=== PATIENT | male | born 1945 | race Caucasian/White ===

== ENCOUNTER 2020-10-05 18:03 | Outpatient (CLI) | payer MEDICARE ==
[2020-10-05 18:57] LABS: PTT 23.6 sec (22.0-33.0); Prothrombin Time 10.3 sec (9.5-12.1)
--- NOTE | 2020-10-05 18:58 | RAD ---
XR Chest Pa Lat STANDARD History: Preop evaluation Comparison: Radiograph September 01, 2020 Findings: Lungs are clear. No pneumothorax or effusion. Cardiac silhouette and mediastinal contours a re within normal limits. No acute osseous abnormality. Impression: No acute intrathoracic abnormality.
[2020-10-05 18:59] LABS: ALT (SGPT) 16 U/L (8-55); AST (SGOT) 21 U/L (5-34); Albumin 3.8 g/dL (3.4-4.8); Alkaline Phosphatase 80 U/L (40-110); Anion Gap 12 mmol/L (10-20); BUN (Urea Nitrogen) 12 mg/dL (8.4-25.7); Bilirubin, Direct 0.1 mg/dL (0.1-0.3); Bilirubin, Total 0.2 mg/dL (0.2-1.2); Calc. Creatinine Clearance 0 mL/min (70-130); Calcium 8.5 mg/dL (7.8-10.44); Carbon Dioxide 26 mmol/L (23-31); Chloride 103 mmol/L (98-107); Estimated GFR-MDRD 83; Globulin 2.5 g/dL (2.4-3.5); Glucose 114 mg/dL (83-110); Potassium 4.5 mmol/L (3.5-5.1); Protein, Total 6.3 g/dL (5.8-8.1); Sodium 136 mmol/L (136-145)
[2020-10-05 19:39] LABS: #Eosinphils 0.3 10x3/uL (0.0-0.5); #Monocytes 0.8 10x3/uL (0.0-1.1); #Neutrophils 5.2 10x3/uL (1.5-8.4); %Basophils 0.5 % (0.0-2.0); %Eosinophils 3.8 % (0.0-6.0); %Lymphocytes 20.3 % (18.0-47.0); %Monocytes 9.6 % (0.0-10.0); %Neutrophils 65.7 % (40.0-75.0); Hemoglobin 6.7 g/dL (14.0-18.0); Mean Corpuscular HGB CONC 27.8 G/DL (32.0-36.0); Mean Corpuscular Hemoglobin 19.8 PG (27.0-33.0); Mean Corpuscular Volume 71.3 fl (80.0-100.0); Mean Platelet Volume 9.2 fl (7.4-10.4); Platelet Count 417 10x3/uL (130-400); Red Blood Cell (RBC) Count 3.38 10x6/uL (4.40-5.80); White Blood Cell (WBC) Count 7.9 10x3/uL (4.5-11.0)
[2020-10-05 20:26] LABS: Anisocytosis SLIGHT = 6-15 cells (100X) (0-5/hpf); Microcytosis SLIGHT = 6-15 cells (100X) (0-5/hpf)
[2020-10-05 20:27] LABS: Hypochromia MODERATE=16-30 cells (100X) (0-5/hpf); Platelet Morphology Comment Appears Increased
[2020-10-06 14:54] LABS: SARS-CoV-2 MS2 Positive; SARS-CoV-2 N Gene Negative; SARS-CoV-2 S Gene Negative; SARS-CoV-2 by NAA Not Detected (NotDetected); SARS-CoV-2 orf1ab Negative
== END 2020-10-05 18:04 | disposition home or self-care (01) ==
LOC: LABBT 18:03
PROVIDERS: ATTEND Internal Medicine Cardiovascular Disease
DX: Z01.818 Encounter for other preprocedural examination (principal); Z20.828 Contact with and (suspected) exposure to other viral communicable diseases; R07.9 Chest pain, unspecified
CPT/HCPCS: 71046; 80053; 80076; 85025; 85610; 85730; U0003; 87635

== ENCOUNTER 2020-10-10 06:05 | Day surgery (SDC) | payer MEDICARE ==
[2020-10-09 08:50] VITALS: BMI 27.8
[2020-10-10] MEDS ORDERED: Diazepam 5 MG TAB ONE (07:06)
[2020-10-10] MEDS ORDERED: Midazolam HCl 2 mg/2 ml Vial ONE (08:20)
[2020-10-10] MEDS ORDERED: Iopamidol 370 76% 100 ML VIAL ONE (08:49)
[2020-10-10] MEDS ORDERED: Heparin 10,000 UNITS/ 10 ML VIAL ONE (09:12)
[2020-10-10] MEDS ORDERED: Verapamil 5 MG/2 ML VIAL ONE (09:13)
[2020-10-10] MEDS ORDERED: Protamine Sulfate 50 MG/5 ML VIAL ONE (09:27)
--- NOTE | 2020-10-10 13:34 | CON ---
DATE OF CONSULTATION: 10/10/2020 REASON FOR CONSULTATION: To evaluate the patient for coronary artery bypass grafting. HISTORY OF PRESENT ILLNESS: Mr. Child is a 75-year-old gentleman, who has had progressive shortness of breath and angina with activity. He had a stress test performed, which had symptomatic positive findings. There was no EKG changes. He was brought in for cardiac catheterization today revealing severe three-vessel disease. Potential bypassable targets included LAD, diagonal, and OM1. He has a left dominant system. His right is diminutive. Ejection fraction is approximately 50%. Currently, he is resting comfortably in the recovery area without problems. PAST MEDICAL HISTORY: 1. Hypertension. 2. Restless legs syndrome. 3. Iron deficiency. PAST SURGICAL HISTORY: Stomach cyst resection. CURRENT MEDICATIONS: 1. Amlodipine/benazepril 5/20 daily. 2. Pramipexole dihydrochloride 0.5 mg daily. ALLERGIES: NONE. SOCIAL HISTORY: He does not use tobacco. He is . He plays golf and tennis, and does construction. REVIEW OF SYSTEMS: A 10-point review of systems is performed is negative except as above. PHYSICAL EXAMINATION: GENERAL: Well-developed and well-nourished male, resting comfortably in the recovery room. VITAL SIGNS: Heart rate is 80 and regular and blood pressure is 130/70. HEENT: Sclerae nonicteric. Pupils are equal and round bilaterally. NECK: Supple. He has no carotid bruits. CHEST: Clear bilaterally. HEART: Rhythm is regular. ABDOMEN: Soft and nontender. EXTREMITIES: No edema. VASCULAR: Palpable carotid, radial, femoral, dorsalis pedis, and posterior tibial pulses bilaterally. VENOUS: There is no venous varicosities or venous stasis changes. LABORATORY DATA: Of note, potassium 4.5 and creatinine 0.9. Hemoglobin is 6.7 and platelet count 417,000. ASSESSMENT AND PLAN: This is a very pleasant gentleman with severe left-sided coronary artery disease. His ejection fraction is preserved. Hemoglobin is chronically low - 6.7 today. I have discussed coronary artery bypass grafting with him with a left internal mammary artery to left anterior descending and saphenous vein graft to diagonal and obtuse marginal 1, he is agreeable. He may need transfusion while he is in the hospital secondary to his preoperative anemic status. We have scheduled him for Friday and make plans from there. Job ID: [id number]
--- NOTE | 2020-10-10 19:58 | DIS ---
DATE OF ADMISSION: 10/10/2020 DATE OF DISCHARGE: 10/10/2020 DISCHARGE DIAGNOSES: 1. Coronary artery disease. 2. Exertional angina. 3. Hypertension. 4. Dyslipidemia. HISTORY OF PRESENT ILLNESS: This patient is a very pleasant 75-year-old gentleman who presents for evaluation of left-sided chest discomfort in the past several months. The patient has had chest pain with exertion. He denies having any chest pain at rest. The patient underwent a Cardiolite stress test, which was showed evidence of ischemia by ECG criteria. HOSPITAL COURSE: On 10/10/2020, the patient underwent left heart catheterization. He was found to have normal left ventricular ejection fraction of 55% to 60%. The LAD had a 50% proximal lesion, subsequent 70% mid lesion, the 1st diagonal branch had diffuse disease, the 2nd diagonal branch had a 70% stenosis, the obtuse marginal branch had a 90% proximal stenosis, the right coronary artery had a 70% proximal stenosis and subsequent 90% mid stenosis and diffuse disease. Right coronary artery was a small caliber vessel. The patient underwent an FFR of the proximal LAD and it was 0.79. He was seen by Cardiothoracic Surgery. He will be scheduled to undergo coronary artery bypass surgery. DISCHARGE MEDICATIONS: 1. Lipitor 40 nightly. 2. Toprol 25 XL daily. 3. Aspirin 325 daily. 4. Amlodipine/benazepril 5/20 mg daily. Job ID: [id number] [facility]
== END 2020-10-10 14:50 | disposition home or self-care (01) ==
LOC: SDC 06:05
PROVIDERS: ATTEND Internal Medicine Cardiovascular Disease
PROC: 4A023N7 Measurement of Cardiac Sampling and Pressure, Left Heart, Percutaneous Approach (ICD-10-PCS; principal; 2020-10-10)
PROC: B2111ZZ Fluoroscopy of Multiple Coronary Arteries using Low Osmolar Contrast (ICD-10-PCS; 2020-10-10)
DX: I25.119 Atherosclerotic heart disease of native coronary artery with unspecified angina pectoris (principal); I10 Essential (primary) hypertension; E78.5 Hyperlipidemia, unspecified; G25.81 Restless legs syndrome; E61.1 Iron deficiency; Z79.82 Long term (current) use of aspirin; Z79.899 Other long term (current) drug therapy
CPT/HCPCS: 85347 ×2; 93458; 93571; C1769; 99152; 99153; J0153; J1644; J2250; J2720; Q9967

== ENCOUNTER 2020-10-12 06:40 | Outpatient (CLI) | payer MEDICARE ==
[2020-10-13 04:28] LABS: SARS-CoV-2 MS2 Positive; SARS-CoV-2 N Gene Negative; SARS-CoV-2 S Gene Negative; SARS-CoV-2 by NAA Not Detected (NotDetected); SARS-CoV-2 orf1ab Negative
== END 2020-10-12 06:41 | disposition home or self-care (01) ==
LOC: LABBT 06:40
PROVIDERS: ATTEND Thoracic Surgery (Cardiothoracic Vascular Surgery)
DX: Z01.812 Encounter for preprocedural laboratory examination (principal); I25.10 Atherosclerotic heart disease of native coronary artery without angina pectoris; Z20.828 Contact with and (suspected) exposure to other viral communicable diseases
CPT/HCPCS: 87635; U0003

== ENCOUNTER 2020-10-12 10:30 | Inpatient (IN) | payer MEDICARE ==
[2020-10-16] MEDS ORDERED: Albumin 5% 500 ML ONE (06:33)
[2020-10-16] MEDS ORDERED: Bupivacaine PF 0.5% 30 ML VIAL ONE (06:33)
[2020-10-16] MEDS ORDERED: EPINEPHrine 1 MG/ML AMP ONE (06:33)
[2020-10-16] MEDS ORDERED: Dexamethasone 4 mg/ml Vial ONE (06:33)
[2020-10-16] MEDS ORDERED: Midazolam HCl 5 mg/5 ml Vial ONE (06:42)
[2020-10-16] MEDS ORDERED: Fentanyl 250 MCG/5 ML VIAL ONE (06:42)
[2020-10-16] MEDS ORDERED: Dexmedetomidine 200 MCG/2 ML VIAL ONE (06:43)
[2020-10-16] MEDS ORDERED: Heparin 10,000 UNITS/1 ML VIAL 30,000 UNITS in Sodium Chloride 0.9% 1,000 ML FS SCH (06:45)
[2020-10-16] MEDS ORDERED: Midazolam HCl 2 mg/2 ml Vial ONE (07:04)
[2020-10-16] MEDS ORDERED: Cardioplegic Soln 1,000 ML BAG ONE (10:41)
[2020-10-16] MEDS ORDERED: Potassium Chloride 60 MEQ/30 ML VIAL ONE (10:41)
[2020-10-16] MEDS ORDERED: Ketorolac Tromethamine 30 MG/ML VIAL ONE (10:41)
[2020-10-16] MEDS ORDERED: Heparin 5,000 UNITS/ML VIAL ONE (10:41)
[2020-10-16] MEDS ORDERED: Aminocaproic Acid 5 GM/20 ML VIAL ONE (10:41)
[2020-10-16] MEDS ORDERED: Vecuronium 10 MG VIAL ONE (10:41)
[2020-10-16] MEDS ORDERED: Sodium Bicarb 50 MEQ/50 ML Abboject 8.4% SYRINGE ONE (10:41)
[2020-10-16] MEDS ORDERED: Mannitol 12.5 GM/50 ML ONE (10:41)
[2020-10-16] MEDS ORDERED: Heparin 30,000 units/30 ml VIAL ONE (10:41)
[2020-10-16] MEDS ORDERED: Glycopyrrolate 0.2 MG/ML 5 ML SYRINGE ONE (10:41)
[2020-10-16] MEDS ORDERED: Lidocaine 1% PF 5 ML VIAL ONE (10:41)
[2020-10-16] MEDS ORDERED: Lidocaine 2% PF 100 mg/5 ml Syringe ONE (10:41)
[2020-10-16] MEDS ORDERED: Magnesium Sulfate 1 GM/2 ML VIAL ONE (10:41)
[2020-10-16] MEDS ORDERED: Nitroglycerin 50 MG/250 ML BOT ONE (10:41)
[2020-10-16] MEDS ORDERED: PROPOFOL 200 MG/20 ML VIAL ONE (10:41)
[2020-10-16] MEDS ORDERED: Calcium Chloride 1 GM/10 ML Abboject SYRINGE ONE (10:41)
[2020-10-16] MEDS ORDERED: Thrombin 5000 UNITS/5 ML VIAL ONE (10:41)
[2020-10-16] MEDS ORDERED: Norepinephrine 4 MG/4 ML VIAL ONE (10:41)
[2020-10-16] MEDS ORDERED: Ondansetron PF 4 MG/2 ML Vial ONE (10:41)
[2020-10-16] MEDS ORDERED: Papaverine 60 MG/2 ML VIAL ONE (10:41)
[2020-10-16] MEDS ORDERED: Ondansetron PF 4 MG/2 ML Vial IVP PRN (11:07)
[2020-10-16] MEDS ORDERED: Bisacodyl 5 MG TAB PO PRN (11:07)
[2020-10-16] MEDS ORDERED: Nitroglycerin 50 MG/250 ML BOT 250 ML IVPB PRN (11:07)
[2020-10-16] MEDS ORDERED: traMADol HCl 50 MG TAB PO PRN ×2 (11:07)
[2020-10-16] MEDS ORDERED: Hetastarch 6% 500 ML 500 ML IVPB PRN (11:07)
[2020-10-16] MEDS ORDERED: hydrALAZINE 20 MG/ML VIAL SLOW IVP PRN (11:07)
[2020-10-16] MEDS ORDERED: Morphine 2 MG/ML VIAL SLOW IVP PRN (11:07)
[2020-10-16] MEDS ORDERED: Norepinephrine 8 MG/0.9% NS 250 ML IVPB PRN (11:07)
[2020-10-16] MEDS ORDERED: Bisacodyl 10 MG SUPP PR PRN (11:07)
[2020-10-16] MEDS ORDERED: Magnesium 2 GM/50 ML 2 GM in Premix Bag 1 BAG IVPB SCH (11:07)
[2020-10-16] MEDS ORDERED: Guaifenesin DM 100-10/5 ML UDCUP PO PRN (11:07)
[2020-10-16] MEDS ORDERED: Mag-Al 1200 mg/1200 mg/30 ML UDCUP PO PRN (11:07)
[2020-10-16] MEDS ORDERED: Potassium Chloride 20 MEQ/100 ML PREMIX BAG IVPB PRN (11:07)
[2020-10-16] MEDS ORDERED: Fentanyl 100 MCG/2 ML VIAL SLOW IVP PRN ×2 (11:07)
[2020-10-16] MEDS ORDERED: D5 1/2 NS w/20 mEq KCL 1,000 ML ONE (11:18)
--- NOTE | 2020-10-16 11:28 | RAD ---
RADIOGRAPH CHEST 1 VIEW: DATE: 10/16/2020 TIME: 11:15 AM HISTORY: 75-year-old male status post open heart surgery COMPARISON: 10/05/2020 FINDINGS: New sternotomy wires. No chest tube ascending left paramedian lower chest, then traversing horizontally such the distal tip is at left mid-upper lung zone laterally. New right subclavian central line ascends the right neck, distal tip outside of field of view. New partial opacification of left lower lobe. No pulmonary edema or pneumothorax detected IMPRESSION: 1) recently status post open heart surgery. 2) subclavian central vascular catheter ascends the right neck, distal portion outside of field of vi ew. 3) the expected left lower lobe atelectasis and/or small left pleural effusion. 4) left-sided chest tube
[2020-10-16] MEDS: Ketorolac Tromethamine 30 MG/ML VIAL IVP SCH ×3 (11:41→23:54)
[2020-10-16] MEDS ORDERED: Dextrose 50% Abboject 50 ML SYRINGE SLOW IVP PRN (11:45)
[2020-10-16] MEDS ORDERED: HUMULIN R 100 UNITS in Sodium Chloride 0.9% 100 ML IVPB SCH (11:45)
[2020-10-16] MEDS ORDERED: Dextrose 5% in Water 1,000 ML IV PRN (11:45)
[2020-10-16 12:01] LABS: INR-International Normal Ratio 1.3; PTT 28.4 sec (22.9-36.1); Prothrombin Time 15.9 sec (12.0-14.7)
[2020-10-16] MEDS: D5 1/2 NS w/20 mEq KCL 1,000 ML IV SCH (12:06)
[2020-10-16] MEDS: Insulin Regular 300 UNITS/3 ML VIAL SC PRN ×4 (12:09→23:55)
[2020-10-16 12:11] LABS: Anion Gap 11 mmol/L (10-20); BUN (Urea Nitrogen) 15 mg/dL (8.4-25.7); Calc. Creatinine Clearance 104 mL/min (70-130); Calcium 8.5 mg/dL (7.8-10.44); Carbon Dioxide 25 mmol/L (23-31); Chloride 106 mmol/L (98-107); Estimated GFR-MDRD 88; Glucose 155 mg/dL (83-110); Potassium 4.6 mmol/L (3.5-5.1); Sodium 137 mmol/L (136-145)
--- NOTE | 2020-10-16 12:13 | OP ---
DATE OF PROCEDURE: 10/16/2020 PREOPERATIVE DIAGNOSES: Coronary artery disease/hypertension and chronic anemia. POSTOPERATIVE DIAGNOSES: Coronary artery disease/hypertension and chronic anemia. PROCEDURES PERFORMED: Coronary artery bypass grafting x4; 1. Left internal mammary artery to 2.0 mm distal left anterior descending - good conduit and target. 2. Reverse saphenous vein in sequence to 2.0 mm ramus and 1.5 mm diagonal - good conduit and target. 3. Reverse saphenous vein to 2.0 mm obtuse marginal - good conduit and target. BEE TENDER: Artemio Nagy MD ANESTHESIA: General endotracheal - Dr. Maurizio Reina. PUMP TIME: 57 minutes. CROSSCLAMP TIME: 34 minutes. LOW-CORE TEMPERATURE: 34 degrees Celsius. CHAR PULLER: Bryan Medley. DRAINS: A 24-Ukrainian chest tubes x2. DRIPS: None. TRANSFUSIONS: Two units pack red blood cells for anemia preoperatively. DESCRIPTION OF PROCEDURE: After consent was obtained, the patient was brought to the operating room, placed in supine position on the operating table. Appropriate central line and monitors were placed, and general endotracheal anesthesia was induced. Chest, abdomen, and legs were prepped and draped in usual sterile fashion. Greater saphenous vein was harvested from the left lower extremity utilizing endoscopic technique. Wounds were irrigated and closed in layers. Median sternotomy was performed. Left internal mammary artery was harvested as a pedicle graft. The patient was systemically heparinized. Distal pedicle was divided and infused with papaverine. Thymic fat and pericardium were divided with electrocautery. Pericardial stay sutures were placed. Aortic and atrial cannulation were performed. After adequate heparinization, retrograde prime was performed and the patient was placed on cardiopulmonary bypass. Two units of pack red blood cells have been added to the pump preoperatively for a hemoglobin of 6.7. Distal targets were marked. Aortic cross-clamp was applied and antegrade sanguineous cardioplegic arrest was obtained. A 1 L of antegrade cold [place] cardioplegia was given. Topical cold solution was used. Reverse saphenous vein was anastomosed to the OM in end-to-side fashion with running 7-0 Prolene suture. Anastomosis was tested and was hemostatic. Reverse saphenous vein was anastomosed in sequence to the ramus in a [id number] fashion and the diagonal in an end-to-side fashion. Anastomoses were inspected and were hemostatic. Mammary artery was brought through a window in the pericardium and anastomosed to LAD in end-to-side fashion with running 7-0 Prolene suture. Anastomosis was tested and was hemostatic. On release of mammary clamps, good hooding of the anastomosis and good distal flow. Pedicle secured with interrupted 6-0 Prolene suture. Cross-clamp was removed and partial occluding clamp was placed. Saphenous vein was anastomosed to the aorta with running 6-0 Prolene suture to individual punch sites. Partial occluding clamp was removed and graft was de-aired. Anastomoses were inspected for hemostasis, which was good. The patient was warmed and weaned from cardiopulmonary bypass. After resumption of sinus rhythm, good hemodynamics, temperature greater than 36.5, bypass was discontinued. Transfusion was given. A 24-Ukrainian chest tubes were placed in mediastinum. Decannulation was performed and pursestring suture was secured. Protamine was administered. After adequate hemostasis have been obtained, vancomycin paste was placed on the sternal edges. The sternum was closed with #7 wire. Sternum was treated with platelet rich plasma, wires twisted and buried. Wounds were irrigated. Presternal blocks performed with 0.5% Marcaine mixed with Decadron. The sternum was then treated with platelet poor plasma, and closed in multiple layers. Needle, sponge, and instrument counts were all reported as correct at the end of the procedure. The patient tolerated the procedure well, was awakened, extubated, and transferred to the intensive care unit in stable condition. Job ID: [id number]
[2020-10-16 12:16] VITALS: BMI 28.5
[2020-10-16 12:19] LABS: Hemoglobin 8.3 g/dL (14.0-18.0); Mean Corpuscular HGB CONC 29.1 g/dL (32.0-36.0); Mean Corpuscular Hemoglobin 20.7 pg (27.0-31.0); Mean Corpuscular Volume 71.3 fL (78.0-98.0); Mean Platelet Volume 9.6 fL (7.4-10.4); Platelet Count 341 thou/uL (130-400); RBC Distribution Width 21.2 % (11.5-14.5); White Blood Cell (WBC) Count 26.3 thou/uL (4.8-10.8)
[2020-10-16 12:22] LABS: Band 9 % (5-11); Elliptocytes SLIGHT = 2-5 cells (100X) (0-1/hpf); Hypochromia SLIGHT = 6-15 cells (100X) (0-5/hpf); Lymphocytes 4 % (21-51); MDiff Complete? YES; Microcytosis SLIGHT = 6-15 cells (100X) (0-5/hpf); Monocytes 4 % (0-10); Neutrophil 83 % (42-75); Platelet Morphology Comment Appears Adequate; Polychromasia SLIGHT = 2-3 cells (100X) (0-2/hpf)
[2020-10-16] MEDS: CEFAZOLIN 2 GM in Premix Bag 1 BAG IVPB SCH ×2 (13:03→22:11)
[2020-10-16 14:05] LABS: Analyzer IN Cardio OR; Base Excess (BEa) -0.8 mEq/L (-2.0 to +3.0); CO2 Tension 48.4 mmHg (35.0-45.0); Carboxyhemoglobin (COHb) 1.1 gm% (0.0-3.0); O2 Tension (PaO2), arterial 348.3 mmHg (> 70.0); Potassium - ABG Lab 4.34 mmol/L (3.70-5.30); pH, Arterial 7.33 (7.35-7.45)
[2020-10-16 14:05] LABS: Actual Bicarbonate (HCO3a) 24.4 mEq/L (22-28); Analyzer IN Cardio OR; Base Excess (BEa) -1.1 mEq/L (-2.0 to +3.0); CO2 Tension 44.9 mmHg (35.0-45.0); Calcium, Ionized (arterial) 1.14 mmol/L (1.12-1.30); Carboxyhemoglobin (COHb) 1.4 gm% (0.0-3.0); O2 Tension (PaO2), arterial 422.5 mmHg (> 70.0); Potassium - ABG Lab 4.06 mmol/L (3.70-5.30); pH, Arterial 7.35 (7.35-7.45)
[2020-10-16 14:05] LABS: Actual Bicarbonate (HCO3a) 24.9 mEq/L (22-28); Analyzer IN Cardio OR; Base Excess (BEa) -0.4 mEq/L (-2.0 to +3.0); CO2 Tension 43.9 mmHg (35.0-45.0); Calcium, Ionized (arterial) 1.16 mmol/L (1.12-1.30); Carboxyhemoglobin (COHb) 1.6 gm% (0.0-3.0); Hemoglobin (Hb) 6.3 g/dL (14.0-18.0); O2 Tension (PaO2), arterial 379.3 mmHg (> 70.0); Potassium - ABG Lab 3.94 mmol/L (3.70-5.30); pH, Arterial 7.37 (7.35-7.45)
[2020-10-16 14:06] LABS: Actual Bicarbonate (HCO3a) 23.9 mEq/L (22-28); Analyzer IN Cardio OR; Base Excess (BEa) -1.2 mEq/L (-2.0 to +3.0); CO2 Tension 41.9 mmHg (35.0-45.0); Calcium, Ionized (arterial) 1.25 mmol/L (1.12-1.30); Carboxyhemoglobin (COHb) 1.6 gm% (0.0-3.0); Hemoglobin (Hb) 6.3 g/dL (14.0-18.0); O2 Tension (PaO2), arterial 284.4 mmHg (> 70.0); Potassium - ABG Lab 4.58 mmol/L (3.70-5.30); pH, Arterial 7.37 (7.35-7.45)
[2020-10-16 14:06] LABS: Actual Bicarbonate (HCO3a) 22.8 mEq/L (22-28); Analyzer IN Cardio OR; CO2 Tension 51.6 mmHg (35.0-45.0); Calcium, Ionized (arterial) 1.18 mmol/L (1.12-1.30); Carboxyhemoglobin (COHb) 1.2 gm% (0.0-3.0); Hemoglobin (Hb) 7.8 g/dL (14.0-18.0); Potassium - ABG Lab 4.53 mmol/L (3.70-5.30); pH, Arterial 7.26 (7.35-7.45)
[2020-10-16 14:07] LABS: Actual Bicarbonate (HCO3a) 22.1 mEq/L (22-28); Analyzer IN Cardio OR; CO2 Tension 39.7 mmHg (35.0-45.0); Calcium, Ionized (arterial) 1.04 mmol/L (1.12-1.30); Carboxyhemoglobin (COHb) 1.5 gm% (0.0-3.0); Hemoglobin (Hb) 6.2 g/dL (14.0-18.0); O2 Tension (PaO2), arterial 283.8 mmHg (> 70.0); Potassium - ABG Lab 4.77 mmol/L (3.70-5.30); pH, Arterial 7.36 (7.35-7.45)
[2020-10-16 14:07] LABS: Puncture Site Arterial Line
[2020-10-16 14:09] LABS: Puncture Site Arterial Line
[2020-10-16 14:10] LABS: Hemoglobin (Hb) 5.6 g/dL (14.0-18.0); Puncture Site Arterial Line
[2020-10-16 14:10] LABS: Puncture Site Arterial Line
[2020-10-16 14:11] LABS: Puncture Site Arterial Line
[2020-10-16 14:11] LABS: Puncture Site Arterial Line
--- NOTE | 2020-10-16 15:54 | CON ---
DATE OF CONSULTATION: REASON FOR CONSULTATION: CAD, status post bypass surgery. HISTORY OF PRESENT ILLNESS: Mr. Child is a 75-year-old gentleman, who is a patient Dr. Tunde Hill. He was recently diagnosed with severe multivessel disease. He underwent bypass surgery x4. During my evaluation, he is extubated. He is on low-dose norepinephrine, maintaining a blood pressure of 90. He has no current symptoms. Chest tube is in place. PAST MEDICAL HISTORY: Hypertension, CAD, iron deficiency, restless legs syndrome. HOME MEDICATIONS: Include: 1. Amlodipine. 2. Iron. REVIEW OF SYSTEMS: A 10-point review of systems is reviewed as above, otherwise negative. SOCIAL HISTORY: No current tobacco or alcohol use. PHYSICAL EXAMINATION: GENERAL: Patient is a pleasant 75-year-old gentleman who is in no acute distress. The patient appears their stated age. VITAL SIGNS: Blood pressure 120/54, pulse 80, respirations 20. NEUROLOGIC: The patient is alert and oriented x3 with no focal neurologic deficits. HEENT: Sclerae without icterus. Mouth has moist mucous membranes with normal pallor. NECK: No JVD. Carotid upstroke brisk. No bruits bilaterally. LUNGS: Clear to auscultation with unlabored respirations. BACK: No scoliosis or kyphosis. CARDIAC: Regular rate and rhythm with normal S1 and S2. No S3 or S4 noted. No significant rubs, murmurs, thrills, or gallops noted throughout the precordium. PMI is not displaced. There is no parasternal heave. ABDOMEN: Soft, nontender, nondistended. No peritoneal signs present. No hepatosplenomegaly. No abnormal striae. EXTREMITIES: 2+ femoral and 2+ dorsalis pedis pulses. No cyanosis, clubbing, or edema. SKIN: No gross abnormalities. PERTINENT LABORATORY DATA: Hemoglobin 8.3. Creatinine 0.88. IMPRESSION: Coronary artery disease, status post bypass surgery. RECOMMENDATIONS: Mr. Child is currently doing well. He has been extubated. I would recommend statin therapy in addition to beta-tony therapy once his blood pressure is more stable and he is off pressor agents. We will continue to follow with you. Job ID: [id number]
[2020-10-16 16:58] LABS: Potassium 4.8 mmol/L (3.5-5.1)
[2020-10-16 16:59] LABS: Hemoglobin 8.2 g/dL (14.0-18.0)
[2020-10-16] MEDS: Famotidine/PF 20 mg/2ml Vial SLOW IVP SCH (20:09)
[2020-10-17] MEDS: Acetaminophen 325 MG TAB PO PRN ×2 (03:50→11:14)
[2020-10-17 04:16] LABS: Anion Gap 11 mmol/L (10-20); BUN (Urea Nitrogen) 21 mg/dL (8.4-25.7); Calc. Creatinine Clearance 85 mL/min (70-130); Carbon Dioxide 24 mmol/L (23-31); Chloride 103 mmol/L (98-107); Estimated GFR-MDRD 70; Glucose 102 mg/dL (83-110); Potassium 4.2 mmol/L (3.5-5.1); Sodium 134 mmol/L (136-145)
[2020-10-17 05:45] LABS: Hemoglobin 6.5 g/dL (14.0-18.0); Mean Corpuscular HGB CONC 29.1 g/dL (32.0-36.0); Mean Corpuscular Hemoglobin 20.4 pg (27.0-31.0); Mean Corpuscular Volume 70.2 fL (78.0-98.0); Mean Platelet Volume 9.7 fL (7.4-10.4); Platelet Count 326 thou/uL (130-400); RBC Distribution Width 21.6 % (11.5-14.5); White Blood Cell (WBC) Count 12.2 thou/uL (4.8-10.8)
[2020-10-17 05:47] LABS: #Monocytes 1.3 thou/uL (0.11-0.59); #Neutrophils 9.9 thou/uL (1.40-6.50); %Basophils 0.3 % (0.0-1.0); %Eosinophils 0.2 % (0.0-10.0); %Lymphocytes 8.2 % (21.0-51.0); %Monocytes 10.6 % (0.0-10.0); %Neutrophils 80.7 % (42.0-75.0)
[2020-10-17 05:48] LABS: Anisocytosis MODERATE=16-30 cells (100X) (0-5/hpf); Elliptocytes SLIGHT = 2-5 cells (100X) (0-1/hpf); Hypochromia SLIGHT = 6-15 cells (100X) (0-5/hpf); MDiff Complete? YES
[2020-10-17] MEDS: Ketorolac Tromethamine 30 MG/ML VIAL IVP SCH ×3 (05:57→17:12)
[2020-10-17] MEDS: CEFAZOLIN 2 GM in Premix Bag 1 BAG IVPB SCH (05:59)
[2020-10-17 07:27] LABS: Iron 11 ug/dL (65-175); Iron Binding Capacity, Total 301 mcg/dL (261-462)
[2020-10-17] MEDS: Magnesium 2 GM/50 ML 2 GM in Premix Bag 1 BAG IVPB SCH (07:30)
[2020-10-17] MEDS: Famotidine/PF 20 mg/2ml Vial SLOW IVP SCH (07:31)
--- NOTE | 2020-10-17 08:04 | RAD ---
EXAM: Portable chest PROVIDED CLINICAL HISTORY: Respiratory insufficiency COMPARISON: None FINDINGS: Interval improvement in aeration at the left lung base. Additional significant interval change with r espect to the prior examination is not apparent. IMPRESSION: As above.
[2020-10-17] MEDS ORDERED: Aspirin 325 MG TAB PO SCH (09:00)
--- NOTE | 2020-10-17 09:54 | CON ---
DATE OF CONSULTATION: 10/17/2020 SUBJECTIVE: Mr. Child is doing well. He is off pressor agents. His hemoglobin did drop and received 1 unit of packed red blood cells. No chest pain or pressure noted. OBJECTIVE: VITAL SIGNS: Blood pressure 112/60, pulse 82, respirations 20. LUNGS: Clear to auscultation. HEART: Regular rate and rhythm. ABDOMEN: Soft, nontender, nondistended. EXTREMITIES: No edema. IMPRESSION: 1. Coronary artery disease. 2. Status post bypass surgery. 3. Anemia. RECOMMENDATIONS: The patient has received a unit of packed red blood cells. We will continue to monitor closely. Blood pressure and heart rate remained stable. Recommend adding low-dose beta-tony in addition to statin therapy. Chest tube management per Dr. Gualberto Lee. Job ID: [id number]
[2020-10-17] MEDS: D5 1/2 NS w/20 mEq KCL 1,000 ML IV SCH (11:48)
[2020-10-17] MEDS ORDERED: Bisacodyl 5 MG TAB PO PRN (18:05)
[2020-10-17] MEDS ORDERED: diphenhydrAMINE 25 MG CAP PO PRN (18:05)
[2020-10-17] MEDS ORDERED: Mag-Al 1200 mg/1200 mg/30 ML UDCUP PO PRN (18:05)
[2020-10-17] MEDS ORDERED: Guaifenesin DM 100-10/5 ML UDCUP PO PRN (18:05)
[2020-10-17] MEDS ORDERED: Nitroglycerin 0.4 MG TAB (25 Tab Bottle) SL PRN (18:05)
[2020-10-17] MEDS ORDERED: Bisacodyl 10 MG SUPP PR PRN (18:05)
[2020-10-17] MEDS ORDERED: Milk Of Magnesia 30 ML UDCUP PO PRN (18:05)
[2020-10-17] MEDS ORDERED: Zolpidem Tartrate 5 MG TAB PO PRN (18:05)
[2020-10-17] MEDS ORDERED: Mineral Oil ENEMA PR PRN (18:05)
[2020-10-17] MEDS: Iron, Sodium Ferric Gluconate 250 MG in Sodium Chloride 0.9% 100 ML IVPB SCH (19:51)
[2020-10-17] MEDS: Atorvastatin Calcium 40 MG TAB PO SCH (21:45)
[2020-10-17] MEDS: Metoprolol Tartrate 25 MG TAB PO SCH (21:47)
[2020-10-18] MEDS: Ketorolac Tromethamine 30 MG/ML VIAL IVP SCH ×4 (00:10→17:26)
[2020-10-18] MEDS: Acetaminophen 325 MG TAB PO PRN (04:46)
[2020-10-18 05:39] LABS: #Basophils 0.1 thou/uL (0.0-0.2); #Eosinphils 0.2 thou/uL (0.0-0.7); #Lymphocytes 1.3 thou/uL (1.20-3.40); #Monocytes 1.5 thou/uL (0.11-0.59); #Neutrophils 8.5 thou/uL (1.40-6.50); %Basophils 0.6 % (0.0-1.0); %Eosinophils 1.5 % (0.0-10.0); %Lymphocytes 11.4 % (21.0-51.0); %Monocytes 13.2 % (0.0-10.0); %Neutrophils 73.3 % (42.0-75.0); Anisocytosis SLIGHT = 6-15 cells (100X) (0-5/hpf); Elliptocytes SLIGHT = 2-5 cells (100X) (0-1/hpf); Hemoglobin 7.2 g/dL (14.0-18.0); Hypochromia SLIGHT = 6-15 cells (100X) (0-5/hpf); MDiff Complete? YES; Mean Corpuscular HGB CONC 30.3 g/dL (32.0-36.0); Mean Corpuscular Hemoglobin 21.9 pg (27.0-31.0); Mean Platelet Volume 10.8 fL (7.4-10.4); Microcytosis SLIGHT = 6-15 cells (100X) (0-5/hpf); Platelet Count 299 thou/uL (130-400); Red Blood Cell (RBC) Count 3.28 mill/uL (4.70-6.10); White Blood Cell (WBC) Count 11.6 thou/uL (4.8-10.8)
[2020-10-18] MEDS ORDERED: Furosemide 40 MG/4 ML VIAL SLOW IVP SCH (07:45)
[2020-10-18] MEDS: Metoprolol Tartrate 25 MG TAB PO SCH ×2 (08:46→20:12)
[2020-10-18] MEDS: Aspirin 325 mg Enteric Coated Tablet PO SCH (08:47)
[2020-10-18] MEDS: Magnesium 2 GM/50 ML 2 GM in Premix Bag 1 BAG IVPB SCH (08:47)
[2020-10-18] MEDS ORDERED: traMADol HCl 50 MG TAB PO PRN ×2 (10:27)
--- NOTE | 2020-10-18 15:42 | CON ---
DATE OF CONSULTATION: REASON FOR CONSULT: Iron deficient anemia. HISTORY OF PRESENT ILLNESS: Mr. Child is a pleasant 75-year-old gentleman, who had coronary artery bypass grafting on this admission. He was noted to have microcytic anemia with a hemoglobin of 8.3 and MCV of 71.3. He has been transfused 3 units over the last 3 days. The patient states he has a history of iron deficient anemia. He was seen by a employment interviewer at [facility]. In the past, he received IV iron infusions, his last was about 18 months ago. He has had 5 colonoscopies he says. He has had multiple EGDs and a capsule endoscopy, all normal. He states they felt that his iron deficiency was from poor absorption, although he denies any celiac disease or autoimmune disorder. He denies any shortness of breath, fatigue, or weight loss. PAST MEDICAL HISTORY: 1. Coronary artery disease. 2. Hypertension. 3. Restless legs syndrome. 4. Iron deficient anemia. PAST SURGICAL HISTORY: Coronary artery bypass grafting; gastric leiomyoma resection, benign. ALLERGIES: NO KNOWN DRUG ALLERGIES. HOME MEDICATIONS: 1. Amlodipine. 2. Aspirin. 3. Ferrous sulfate. 4. Atorvastatin. 5. Metoprolol. 6. Mirapex. 7. Nitrostat. 8. Prilosec. FAMILY HISTORY: Noncontributory. SOCIAL HISTORY: , lives with his spouse. No alcohol, tobacco, or illicit drug use. REVIEW OF SYSTEMS: A 12-point review of systems is negative except for noted in HPI. PHYSICAL EXAMINATION: VITAL SIGNS: Temperature 97.8, pulse is 71, respiratory rate 18, BP is 131/60, he is 99% on room air. GENERAL: This is a well-developed, well-nourished male, in no acute distress. HEENT: Normocephalic, atraumatic. Pupils are equal and reactive to light. NECK: Supple. CV: Regular rate and rhythm. LUNGS: Clear. ABDOMEN: Soft and nontender. Bowel sounds are positive. EXTREMITIES: No clubbing or cyanosis. SKIN: He has a chronic cyst on the bottom of his foot, which is currently wrapped. Central venous catheter in his right subclavian, midline chest incision. NEUROLOGICAL: Nonfocal. PERTINENT LABS AND X-RAY: Current WBCs 11.6, hemoglobin 7.2, hematocrit 23.6, platelet count is 299,000. 73% neutrophils, 11% lymphocytes, 13% monocytes. PT is 15.9, INR is 1.3, and PTT is 28.4. Sodium 134, potassium 4.2, chloride 103, CO2 is 14, BUN is 21, creatinine 1.04, calcium 8. Iron 11, TIBC is 301, ferritin 7.21. Bilirubin 0.4, AST is 21, ALT is 16, alkaline phosphatase is 80. Serum total protein is 6.3, albumin 3.8, globulin 2.5. ASSESSMENT: 1. Acute on chronic iron deficient anemia. 2. Recent coronary artery bypass grafting. DISCUSSION: The patient has had a comprehensive workup at [facility] in the past. We will request their medical records. Clearly, he does not absorb his oral iron. He was instructed to stop. He is receiving three doses of IV iron over 3 days here and will follow up in our clinic to continue to be monitored. Appointment was given along with the clinic information. He verbalized understanding. We will be happy to follow this pleasant gentleman in the outpatient setting. Thank you for the consult. Job ID: [id number]
[2020-10-18] MEDS: Iron, Sodium Ferric Gluconate 250 MG in Sodium Chloride 0.9% 100 ML IVPB SCH (17:26)
[2020-10-18] MEDS: Atorvastatin Calcium 40 MG TAB PO SCH (20:12)
[2020-10-19] MEDS: Ketorolac Tromethamine 30 MG/ML VIAL IVP SCH ×3 (00:43→11:53)
[2020-10-19 05:09] LABS: #Eosinphils 0.4 thou/uL (0.0-0.7); #Lymphocytes 1.4 thou/uL (1.20-3.40); #Monocytes 1.4 thou/uL (0.11-0.59); #Neutrophils 9.6 thou/uL (1.40-6.50); %Basophils 0.4 % (0.0-1.0); %Eosinophils 3.2 % (0.0-10.0); %Lymphocytes 11.1 % (21.0-51.0); %Monocytes 11.1 % (0.0-10.0); %Neutrophils 74.2 % (42.0-75.0); Hemoglobin 7.7 g/dL (14.0-18.0); Mean Corpuscular HGB CONC 30.7 g/dL (32.0-36.0); Mean Corpuscular Hemoglobin 22.1 pg (27.0-31.0); Mean Platelet Volume 10.7 fL (7.4-10.4); Platelet Count 371 thou/uL (130-400); RBC Distribution Width 23.9 % (11.5-14.5); White Blood Cell (WBC) Count 12.9 thou/uL (4.8-10.8)
[2020-10-19] MEDS: Aspirin 325 mg Enteric Coated Tablet PO SCH (09:12)
[2020-10-19] MEDS: Metoprolol Tartrate 25 MG TAB PO SCH (09:12)
[2020-10-19] MEDS ORDERED: Iron, Sodium Ferric Gluconate 250 MG in Sodium Chloride 0.9% 100 ML IVPB SCH (11:30)
--- NOTE | 2020-10-19 11:30 | DIS ---
DATE OF ADMISSION: 10/16/2020 DATE OF DISCHARGE: 10/19/2020 DIAGNOSES: 1. Coronary artery disease. 2. Hypertension. 3. Dyslipidemia. 4. Chronic iron deficiency anemia. 5. History of leiomyoma, status post resection in [place] of the stomach. PROCEDURES: Coronary artery bypass grafting x4 - 1. Left internal mammary artery to left anterior descending. 2. Reverse saphenous vein in sequence to ramus and diagonal. 3. Reverse saphenous vein to obtuse marginal. DESCRIPTION OF HOSPITAL STAY: Mr. Child was admitted for elective coronary artery bypass grafting. He underwent procedure without difficulty. Preoperatively, his hemoglobin was 6.7. He was given 2 units of packed red blood cells in the operating room and another unit postoperatively, which brought his hemoglobin up to 7.7. The patient had previously been on iron infusions in [place]. He had been worked up through the [facility] and was told he had iron deficiency anemia. He also had a leiomyoma that had been resected of his stomach. He has not had any repeat endoscopy. His hemoglobin in [place] at last check was 12.8 and now is down to 6.7 preoperatively. He was told that he had an iron absorption problem and was started on IV iron infusions in [place]. He decided to stop these and transition to oral iron, which interestingly has shown not to be effective and he had a preoperative hemoglobin of 6.7. The Hematology Service saw him in the hospital, started him on IV iron and will see him back as an outpatient. He also is going to need repeat endoscopy and will set up him up as an outpatient with Gastroenterology. FOLLOWUP: Follow up is with me in 2 weeks and other consultants as above. DISCHARGE MEDICATIONS: Include; 1. Aspirin 325 mg daily. 2. Lipitor 40 mg daily. 3. Metoprolol 25 mg daily. 4. Omeprazole 20 mg at bedtime. Job ID: [id number]
[2020-10-19 13:23] VITALS: BP 110/57; TEMP 97.9
== END 2020-10-19 15:10 | disposition home or self-care (01) | DRG 236 ==
LOC: SDC 10-16 05:55 → SURG A 10-16 05:55 → EDSTATUS 10-16 10:30 → CCU 10-16 11:20 → 2NO 10-17 18:22
PROVIDERS: ADMIT Thoracic Surgery (Cardiothoracic Vascular Surgery); ATTEND Thoracic Surgery (Cardiothoracic Vascular Surgery)
PROC: 02100Z9 Bypass Coronary Artery, One Artery from Left Internal Mammary, Open Approach (ICD-10-PCS; principal; 2020-10-16)
PROC: 021209W Bypass Coronary Artery, Three Arteries from Aorta with Autologous Venous Tissue, Open Approach (ICD-10-PCS; 2020-10-16)
PROC: 06BQ4ZZ Excision of Left Saphenous Vein, Percutaneous Endoscopic Approach (ICD-10-PCS; 2020-10-16)
PROC: 5A1221Z Performance of Cardiac Output, Continuous (ICD-10-PCS; 2020-10-16)
PROC: 30233N1 Transfusion of Nonautologous Red Blood Cells into Peripheral Vein, Percutaneous Approach (ICD-10-PCS; 2020-10-16)
DX: I25.10 Atherosclerotic heart disease of native coronary artery without angina pectoris (principal); Z20.828 Contact with and (suspected) exposure to other viral communicable diseases; I10 Essential (primary) hypertension; E78.5 Hyperlipidemia, unspecified; D50.9 Iron deficiency anemia, unspecified; G25.81 Restless legs syndrome; Z79.82 Long term (current) use of aspirin; Z79.899 Other long term (current) drug therapy
CPT/HCPCS: 36415; 36416; 36430; 71045; 80048; 82728; 82805; 82947; 83540; 83550; 85025; 85610; 85730; 86850; 86900; 86901; 93005; 93010; 93798; 97139; J0171; J0690; J1100; J1642; J1644; J1815; J1885; J1940; J2001; J2150; J2250; J2405; J2440; J2704; J2916; J3010; J3370; J3475; J3480; J3490; P9016; P9045; S0017; S0020; S0028

== ENCOUNTER 2021-05-09 18:05 | Observation (INO) | payer MEDICARE ==
[2021-05-09] MEDS ORDERED: Acetaminophen 325 MG TAB PO PRN (20:08)
[2021-05-09] MEDS ORDERED: Ondansetron PF 4 MG/2 ML Vial IVP PRN (20:08)
[2021-05-09] MEDS ORDERED: Nitroglycerin 0.4 MG TAB (25 Tab Bottle) SL PRN (20:12)
[2021-05-09] MEDS ORDERED: Metoprolol Tartrate 25 MG TAB PO SCH (21:00)
[2021-05-09] MEDS ORDERED: Pramipexole Di-HCl 1 MG TAB PO SCH (21:00)
[2021-05-09] MEDS ORDERED: Atorvastatin Calcium 40 MG TAB PO SCH (21:00)
[2021-05-09] MEDS: Famotidine 20 MG TAB PO SCH (21:09)
[2021-05-09 21:15] VITALS: BMI 28.3
[2021-05-09] MEDS: Nitroglycerin 2% Ointment 1 INCH/1 GM Packet TOP SCH (21:41)
[2021-05-09 21:56] LABS: Troponin I Less than 0.010 ng/mL (< 0.028)
[2021-05-10 05:19] LABS: #Eosinphils 0.3 thou/uL (0.0-0.7); #Lymphocytes 1.1 thou/uL (1.20-3.40); #Monocytes 0.7 thou/uL (0.11-0.59); #Neutrophils 4.8 thou/uL (1.40-6.50); %Basophils 0.2 % (0.0-1.0); %Eosinophils 3.7 % (0.0-10.0); %Lymphocytes 16.2 % (21.0-51.0); %Monocytes 9.5 % (0.0-10.0); %Neutrophils 70.4 % (42.0-75.0); Hemoglobin 10.2 g/dL (14.0-18.0); Mean Corpuscular HGB CONC 30.9 g/dL (32.0-36.0); Mean Corpuscular Hemoglobin 26.1 pg (27.0-31.0); Mean Corpuscular Volume 84.5 fL (78.0-98.0); Mean Platelet Volume 8.4 fL (7.4-10.4); Platelet Count 296 thou/uL (130-400); RBC Distribution Width 20.5 % (11.5-14.5); Red Blood Cell (RBC) Count 3.91 mill/uL (4.70-6.10); White Blood Cell (WBC) Count 6.9 thou/uL (4.8-10.8)
[2021-05-10 05:36] LABS: Anion Gap 10 mmol/L (10-20); BUN (Urea Nitrogen) 18 mg/dL (8.4-25.7); Calc. Creatinine Clearance 108 mL/min (70-130); Calcium 8.7 mg/dL (7.8-10.44); Carbon Dioxide 26 mmol/L (23-31); Chloride 107 mmol/L (98-107); Glucose 90 mg/dL (83-110); Potassium 3.9 mmol/L (3.5-5.1); Sodium 139 mmol/L (136-145)
[2021-05-10] MEDS: Nitroglycerin 2% Ointment 1 INCH/1 GM Packet TOP SCH (05:54)
[2021-05-10] MEDS ORDERED: Metoprolol Tartrate 25 MG TAB PO SCH (06:03)
[2021-05-10] MEDS: Famotidine 20 MG TAB PO SCH (08:35)
[2021-05-10] MEDS ORDERED: Aspirin Chewable 81 MG TAB PO SCH (09:00)
[2021-05-10] MEDS ORDERED: Tamsulosin HCl 0.4 MG CAP PO SCH (09:00)
[2021-05-10 11:32] LABS: SARS-CoV-2 PCR NAA for Saliva Not Detected (NotDetected)
[2021-05-10 12:17] VITALS: BP 121/63; TEMP 97.5
== END 2021-05-10 12:15 | disposition home or self-care (01) ==
LOC: 2SW 18:05
PROVIDERS: ADMIT Internal Medicine; ATTEND Family Medicine
DX: R07.89 Other chest pain (principal); I25.10 Atherosclerotic heart disease of native coronary artery without angina pectoris; I10 Essential (primary) hypertension; E78.5 Hyperlipidemia, unspecified; K21.9 Gastro-esophageal reflux disease without esophagitis; D50.9 Iron deficiency anemia, unspecified; G25.81 Restless legs syndrome; N40.0 Benign prostatic hyperplasia without lower urinary tract symptoms; Z79.899 Other long term (current) drug therapy; Z95.1 Presence of aortocoronary bypass graft; Z20.822 Contact with and (suspected) exposure to COVID-19
CPT/HCPCS: 80048; 84484; 85025; G0378 ×2; U0003; U0005; 36415

== ENCOUNTER 2022-05-16 08:46 | Inpatient (IN) | payer MEDICARE, OTHER ==
[2022-05-16 09:39] LABS: Hemoglobin 11.7 g/dL (14.0-18.0); Mean Corpuscular HGB CONC 31.8 g/dL (32.0-36.0); Mean Corpuscular Hemoglobin 28.3 pg (27.0-31.0); Platelet Count 215 thou/uL (130-400); RBC Distribution Width 16.2 % (11.5-14.5); Red Blood Cell (RBC) Count 4.14 mill/uL (4.70-6.10); White Blood Cell (WBC) Count 5.1 thou/uL (4.8-10.8)
[2022-05-16] MEDS ORDERED: Cefepime 2 GM VIAL ONE (09:49)
[2022-05-16] MEDS ORDERED: Vancomycin 1 GM/200 ML BAG ONE ×2 (09:49→10:39)
[2022-05-16 09:55] LABS: ALT (SGPT) 11 U/L (8-55); AST (SGOT) 17 U/L (5-34); Albumin 3.6 g/dL (3.4-4.8); Alkaline Phosphatase 77 U/L (40-110); Anion Gap 13 mmol/L (10-20); BUN (Urea Nitrogen) 15 mg/dL (8.4-25.7); Bilirubin, Total 0.2 mg/dL (0.2-1.2); Calc. Creatinine Clearance 0 mL/min (70-130); Calcium 8.6 mg/dL (7.8-10.44); Carbon Dioxide 26 mmol/L (23-31); Chloride 104 mmol/L (98-107); Globulin 2.7 g/dL (2.4-3.5); Glucose 127 mg/dL (83-110); Potassium 3.8 mmol/L (3.5-5.1); Protein, Total 6.3 g/dL (5.8-8.1); Sodium 139 mmol/L (136-145)
[2022-05-16 10:19] LABS: Anisocytosis SLIGHT = 6-15 cells (100X) (0-5/hpf); Band 2 % (5-11); Hypochromia SLIGHT = 6-15 cells (100X) (0-5/hpf); Lymphocytes 11 % (21-51); MDiff Complete? YES; Monocytes 10 % (0-10); Neutrophil 74 % (42-75); Platelet Morphology Comment Appears Adequate; Reactive Lymphocytes 1 % (0-10)
[2022-05-16] MEDS ORDERED: Acetaminophen 500 MG TAB ONE (10:24)
[2022-05-16] MEDS ORDERED: HYDROcodone/Acetaminophen 5/325 mg Tablet PO PRN (11:59)
[2022-05-16] MEDS ORDERED: Ondansetron ODT 4 MG TAB SL PRN (12:00)
[2022-05-16] MEDS ORDERED: Ondansetron PF 4 MG/2 ML Vial IVP PRN (12:00)
[2022-05-16 12:04] VITALS: BMI 27.8
[2022-05-16 12:30] LABS: Lactic Acid 0.7 mmol/L (0.5-2.2)
[2022-05-16] MEDS ORDERED: Acetaminophen 325 MG TAB PO PRN (14:51)
[2022-05-16] MEDS: cefTRIAXone\\ROCEPHIN 1 GM in Sodium Chloride 0.9% 100 ML IVPB SCH (15:46)
[2022-05-16 17:48] LABS: Complement-C4 31.1 mg/dL (15-53)
[2022-05-16] MEDS: Amlodipine 5 MG TAB PO SCH (20:18)
[2022-05-16] MEDS: Metoprolol Tartrate 50 MG TAB PO SCH (20:20)
[2022-05-16] MEDS: Pramipexole Di-HCl 1 MG TAB PO SCH (20:24)
[2022-05-16] MEDS: VANCOMYCIN 1.25 GM/250 ML BAG 1.25 GM in Premix Bag 1 BAG IVPB SCH (22:55)
[2022-05-17 07:14] LABS: Eosinophils 2 % (0-10); Hemoglobin 11.7 g/dL (14.0-18.0); Lymphocytes 32 % (21-51); MDiff Complete? YES; Mean Corpuscular HGB CONC 30.8 g/dL (32.0-36.0); Mean Corpuscular Hemoglobin 27.5 pg (27.0-31.0); Mean Corpuscular Volume 89.3 fL (78.0-98.0); Mean Platelet Volume 8.1 fL (7.4-10.4); Monocytes 7 % (0-10); Neutrophil 59 % (42-75); Platelet Count 202 thou/uL (130-400); Platelet Morphology Comment Appears Adequate; RBC Morphology Normal; Red Blood Cell (RBC) Count 4.26 mill/uL (4.70-6.10); White Blood Cell (WBC) Count 3.6 thou/uL (4.8-10.8)
[2022-05-17 07:22] LABS: ALT (SGPT) 10 U/L (8-55); AST (SGOT) 19 U/L (5-34); Albumin 3.3 g/dL (3.4-4.8); Alkaline Phosphatase 72 U/L (40-110); Anion Gap 11 mmol/L (10-20); BUN (Urea Nitrogen) 12 mg/dL (8.4-25.7); Bilirubin, Total 0.5 mg/dL (0.2-1.2); Calc. Creatinine Clearance 103 mL/min (70-130); Carbon Dioxide 27 mmol/L (23-31); Chloride 103 mmol/L (98-107); Globulin 2.1 g/dL (2.4-3.5); Glucose 103 mg/dL (83-110); Potassium 4.2 mmol/L (3.5-5.1); Protein, Total 5.4 g/dL (5.8-8.1); Sodium 137 mmol/L (136-145)
[2022-05-17] MEDS: Tamsulosin HCl 0.4 MG CAP PO SCH (08:23)
[2022-05-17] MEDS: Metoprolol Tartrate 50 MG TAB PO SCH ×3 (08:23→20:42)
[2022-05-17] MEDS: Docusate 100 MG CAP PO SCH (08:23)
[2022-05-17] MEDS: Amlodipine 5 MG TAB PO SCH ×3 (08:23→20:42)
[2022-05-17] MEDS ORDERED: Enoxaparin Sodium 40 MG/0.4 ML SYRINGE SC SCH (09:00)
[2022-05-17] MEDS ORDERED: fentaNYL Citrate/PF 100 MCG/2 ML SYRINGE ONE ×2 (09:14→09:15)
[2022-05-17] MEDS ORDERED: Lidocaine 1% w/Epinephrine 1:100K 20 ML VIAL ONE (09:18)
[2022-05-17] MEDS ORDERED: Bacitracin Zinc Ointment 30 gm TUBE ONE (09:18)
[2022-05-17] MEDS ORDERED: Bupivacaine 0.25% HCL 30 ML VIAL ONE (09:18)
[2022-05-17] MEDS ORDERED: Lidocaine 1% PF 5 ML VIAL ONE (09:52)
[2022-05-17] MEDS ORDERED: PROPOFOL 200 MG/20 ML VIAL ONE (09:52)
[2022-05-17] MEDS ORDERED: Dexamethasone 20 MG/5 ML VIAL ONE (09:52)
[2022-05-17] MEDS ORDERED: Ondansetron PF 4 MG/2 ML Vial ONE (09:52)
[2022-05-17] MEDS ORDERED: ePHEDrine 50 MG/ML VIAL ONE (09:52)
[2022-05-17] MEDS ORDERED: Fentanyl 100 MCG/2 ML VIAL ONE (11:39)
[2022-05-17] MEDS ORDERED: Promethazine HCl 25 MG/ML VIAL IM PRN (11:50)
[2022-05-17] MEDS ORDERED: Promethazine HCl 25 MG/ML VIAL IVPB PRN (11:50)
[2022-05-17] MEDS ORDERED: Ondansetron HCl/PF 4 MG/2 ML Vial IVP PRN (11:50)
[2022-05-17] MEDS: VANCOMYCIN 1.25 GM/250 ML BAG 1.25 GM in Premix Bag 1 BAG IVPB SCH (12:26)
[2022-05-17] MEDS ORDERED: HYDROcodone/Acetaminophen 7.5/325 mg Tablet PO PRN (13:38)
[2022-05-17] MEDS ORDERED: Morphine 2 MG/ML VIAL SLOW IVP PRN (13:40)
[2022-05-17] MEDS ORDERED: Morphine 4 MG/ML VIAL SLOW IVP PRN (13:40)
[2022-05-17] MEDS: HYDROcodone/Acetaminophen 7.5/325 mg Tablet PO PRN ×2 (14:04→20:37)
[2022-05-17] MEDS: cefTRIAXone\\ROCEPHIN 1 GM in Sodium Chloride 0.9% 100 ML IVPB SCH (16:54)
[2022-05-17] MEDS: Pramipexole Di-HCl 1 MG TAB PO SCH (20:37)
[2022-05-17 21:38] LABS: Vancomycin, Trough 7.6 ug/mL
[2022-05-17] MEDS: VANCOMYCIN 1.75 GM/500 ML BAG 1.75 GM in Premix Bag 1 BAG IVPB SCH (22:10)
[2022-05-18 06:58] LABS: #Eosinphils 0.1 thou/uL (0.0-0.7); #Lymphocytes 0.7 thou/uL (1.20-3.40); #Monocytes 0.5 thou/uL (0.11-0.59); #Neutrophils 2.4 thou/uL (1.40-6.50); %Eosinophils 1.8 % (0.0-10.0); %Lymphocytes 19.4 % (21.0-51.0); %Monocytes 13.7 % (0.0-10.0); %Neutrophils 64.1 % (42.0-75.0); Hemoglobin 11.3 g/dL (14.0-18.0); Mean Corpuscular HGB CONC 32.2 g/dL (32.0-36.0); Mean Corpuscular Hemoglobin 28.4 pg (27.0-31.0); Mean Corpuscular Volume 88.3 fL (78.0-98.0); Mean Platelet Volume 8.2 fL (7.4-10.4); Platelet Count 197 thou/uL (130-400); RBC Distribution Width 15.6 % (11.5-14.5); Red Blood Cell (RBC) Count 3.97 mill/uL (4.70-6.10); White Blood Cell (WBC) Count 3.7 thou/uL (4.8-10.8)
[2022-05-18 07:28] LABS: ALT (SGPT) 10 U/L (8-55); AST (SGOT) 18 U/L (5-34); Albumin 3.1 g/dL (3.4-4.8); Alkaline Phosphatase 68 U/L (40-110); Anion Gap 12 mmol/L (10-20); BUN (Urea Nitrogen) 14 mg/dL (8.4-25.7); Bilirubin, Total 0.2 mg/dL (0.2-1.2); Calc. Creatinine Clearance 112 mL/min (70-130); Calcium 8.4 mg/dL (7.8-10.44); Carbon Dioxide 26 mmol/L (23-31); Chloride 103 mmol/L (98-107); Globulin 2.4 g/dL (2.4-3.5); Glucose 110 mg/dL (83-110); Potassium 3.7 mmol/L (3.5-5.1); Protein, Total 5.5 g/dL (5.8-8.1); Sodium 137 mmol/L (136-145)
[2022-05-18] MEDS: Amlodipine 5 MG TAB PO SCH ×2 (09:00→20:02)
[2022-05-18] MEDS: Tamsulosin HCl 0.4 MG CAP PO SCH (09:00)
[2022-05-18] MEDS: Metoprolol Tartrate 50 MG TAB PO SCH ×2 (09:00→20:02)
[2022-05-18] MEDS: Docusate 100 MG CAP PO SCH (09:00)
[2022-05-18] MEDS: VANCOMYCIN 1.75 GM/500 ML BAG 1.75 GM in Premix Bag 1 BAG IVPB SCH ×2 (09:06→22:32)
[2022-05-18] MEDS ORDERED: Enoxaparin Sodium 40 MG/0.4 ML SYRINGE SC SCH (10:30)
[2022-05-18] MEDS ORDERED: Polyethylene Glycol 3350 17 GM Packet PO SCH (10:30)
[2022-05-18] MEDS: cefTRIAXone\\ROCEPHIN 1 GM in Sodium Chloride 0.9% 100 ML IVPB SCH (16:59)
[2022-05-18] MEDS: Pramipexole Di-HCl 1 MG TAB PO SCH (20:02)
[2022-05-19 06:59] LABS: #Eosinphils 0.2 thou/uL (0.0-0.7); #Lymphocytes 1.2 thou/uL (1.20-3.40); #Monocytes 0.4 thou/uL (0.11-0.59); #Neutrophils 2.3 thou/uL (1.40-6.50); %Basophils 0.3 % (0.0-1.0); %Eosinophils 5.6 % (0.0-10.0); %Lymphocytes 29.1 % (21.0-51.0); %Monocytes 9.3 % (0.0-10.0); %Neutrophils 55.7 % (42.0-75.0); Hemoglobin 11.2 g/dL (14.0-18.0); Mean Corpuscular HGB CONC 30.9 g/dL (32.0-36.0); Mean Corpuscular Hemoglobin 27.7 pg (27.0-31.0); Mean Corpuscular Volume 89.4 fL (78.0-98.0); Mean Platelet Volume 8.3 fL (7.4-10.4); Platelet Count 206 thou/uL (130-400); RBC Distribution Width 15.5 % (11.5-14.5); Red Blood Cell (RBC) Count 4.05 mill/uL (4.70-6.10); White Blood Cell (WBC) Count 4.2 thou/uL (4.8-10.8)
[2022-05-19 07:27] LABS: ALT (SGPT) 10 U/L (8-55); AST (SGOT) 16 U/L (5-34); Albumin 2.9 g/dL (3.4-4.8); Alkaline Phosphatase 60 U/L (40-110); Anion Gap 11 mmol/L (10-20); BUN (Urea Nitrogen) 12 mg/dL (8.4-25.7); Bilirubin, Total 0.2 mg/dL (0.2-1.2); Calc. Creatinine Clearance 115 mL/min (70-130); Calcium 8.2 mg/dL (7.8-10.44); Carbon Dioxide 26 mmol/L (23-31); Chloride 105 mmol/L (98-107); Globulin 2.5 g/dL (2.4-3.5); Glucose 86 mg/dL (83-110); Potassium 3.9 mmol/L (3.5-5.1); Protein, Total 5.4 g/dL (5.8-8.1); Sodium 138 mmol/L (136-145)
[2022-05-19] MEDS: Enoxaparin Sodium 40 MG/0.4 ML SYRINGE SC SCH (08:16)
[2022-05-19] MEDS: Tamsulosin HCl 0.4 MG CAP PO SCH (08:16)
[2022-05-19] MEDS: Amlodipine 5 MG TAB PO SCH ×2 (08:16→21:16)
[2022-05-19] MEDS: Docusate 100 MG CAP PO SCH (08:16)
[2022-05-19] MEDS: Polyethylene Glycol 3350 17 GM Packet PO SCH ×2 (08:16→08:20)
[2022-05-19] MEDS: Metoprolol Tartrate 50 MG TAB PO SCH ×2 (08:16→21:16)
[2022-05-19 09:40] LABS: Vancomycin, Trough 19.5 ug/mL
[2022-05-19] MEDS: VANCOMYCIN 1.75 GM/500 ML BAG 1.75 GM in Premix Bag 1 BAG IVPB SCH ×2 (10:01→21:16)
[2022-05-19] MEDS: cefTRIAXone\\ROCEPHIN 1 GM in Sodium Chloride 0.9% 100 ML IVPB SCH (15:05)
[2022-05-19] MEDS: Pramipexole Di-HCl 1 MG TAB PO SCH (21:16)
[2022-05-19] MEDS: HYDROcodone/Acetaminophen 7.5/325 mg Tablet PO PRN (21:17)
[2022-05-20 06:16] LABS: #Eosinphils 0.3 thou/uL (0.0-0.7); #Lymphocytes 1.1 thou/uL (1.20-3.40); #Monocytes 0.4 thou/uL (0.11-0.59); #Neutrophils 1.6 thou/uL (1.40-6.50); %Basophils 0.4 % (0.0-1.0); %Eosinophils 8.1 % (0.0-10.0); %Lymphocytes 32.4 % (21.0-51.0); %Monocytes 12.2 % (0.0-10.0); %Neutrophils 46.9 % (42.0-75.0); Hemoglobin 11.5 g/dL (14.0-18.0); Mean Corpuscular HGB CONC 31.6 g/dL (32.0-36.0); Mean Corpuscular Volume 88.7 fL (78.0-98.0); Mean Platelet Volume 7.9 fL (7.4-10.4); Platelet Count 204 thou/uL (130-400); RBC Distribution Width 15.5 % (11.5-14.5); Red Blood Cell (RBC) Count 4.08 mill/uL (4.70-6.10); White Blood Cell (WBC) Count 3.3 thou/uL (4.8-10.8)
[2022-05-20 06:42] LABS: ALT (SGPT) 13 U/L (8-55); AST (SGOT) 20 U/L (5-34); Albumin 3.1 g/dL (3.4-4.8); Alkaline Phosphatase 67 U/L (40-110); Anion Gap 10 mmol/L (10-20); BUN (Urea Nitrogen) 11 mg/dL (8.4-25.7); Bilirubin, Total 0.3 mg/dL (0.2-1.2); Calc. Creatinine Clearance 118 mL/min (70-130); Calcium 8.5 mg/dL (7.8-10.44); Carbon Dioxide 28 mmol/L (23-31); Chloride 104 mmol/L (98-107); Globulin 2.5 g/dL (2.4-3.5); Glucose 89 mg/dL (83-110); Potassium 3.8 mmol/L (3.5-5.1); Protein, Total 5.6 g/dL (5.8-8.1); Sodium 138 mmol/L (136-145)
[2022-05-20] MEDS: Polyethylene Glycol 3350 17 GM Packet PO SCH (06:54)
[2022-05-20 07:43] VITALS: TEMP 97.6
[2022-05-20] MEDS: VANCOMYCIN 1.75 GM/500 ML BAG 1.75 GM in Premix Bag 1 BAG IVPB SCH (08:03)
[2022-05-20] MEDS: Amlodipine 5 MG TAB PO SCH (08:03)
[2022-05-20] MEDS: Enoxaparin Sodium 40 MG/0.4 ML SYRINGE SC SCH (08:03)
[2022-05-20] MEDS: Metoprolol Tartrate 50 MG TAB PO SCH (08:04)
[2022-05-20] MEDS: Tamsulosin HCl 0.4 MG CAP PO SCH (08:04)
[2022-05-20] MEDS: Docusate 100 MG CAP PO SCH (08:04)
[2022-05-20 08:08] VITALS: BP 149/92
[2022-05-20] MEDS ORDERED: Amoxicillin/Potassium Clav 500 MG TAB PO SCH (21:00)
== END 2022-05-20 18:19 | disposition home or self-care (01) | DRG 474 ==
LOC: ERS 08:46 → T4-B 10:46
PROVIDERS: ADMIT Family Medicine; ATTEND Family Medicine
PROC: 8E0ZXY6 Isolation (ICD-10-PCS; 2022-05-16)
PROC: 0Y6N0Z9 Detachment at Left Foot, Partial 1st Ray, Open Approach (ICD-10-PCS; principal; 2022-05-17)
PROC: 0Y6N0ZF Detachment at Left Foot, Partial 5th Ray, Open Approach (ICD-10-PCS; 2022-05-17)
DX: M86.172 Other acute osteomyelitis, left ankle and foot (principal); U07.1 COVID-19; I96 Gangrene, not elsewhere classified; Z20.822 Contact with and (suspected) exposure to COVID-19; G25.81 Restless legs syndrome; I25.10 Atherosclerotic heart disease of native coronary artery without angina pectoris; K21.9 Gastro-esophageal reflux disease without esophagitis; N40.0 Benign prostatic hyperplasia without lower urinary tract symptoms; I11.0 Hypertensive heart disease with heart failure; I50.9 Heart failure, unspecified; D50.9 Iron deficiency anemia, unspecified; Z95.1 Presence of aortocoronary bypass graft; Z79.899 Other long term (current) drug therapy
CPT/HCPCS: 36415; 80053; 80202; 83605; 85025; 85652; 86140; 86160; 87040; 87070; 87205; 87804; 88305; 88311; 93922; 96374; 96375; 97139; J0692; J0696; J1100; J1650; J2405; J2704; J3010; J3370; J3490; S0020; U0003; U0005